=== PATIENT | female | born 1960 | race Caucasian/White ===

== ENCOUNTER → 2016-12-05 | Outpatient (CLI) | payer OTHER | LOC: COL.RAD 12-01 10:00 | DX: R19.4 Change in bowel habit (principal) ==

== ENCOUNTER 2020-07-25 23:19 | Inpatient (IN) | payer OTHER ==
[2020-07-26] VITALS (7 sets, daily range): BP systolic 80–102; BP diastolic 42–62; PULSE 58–70; TEMP 97.4–98.4
--- NOTE | 2020-07-26 00:50 | NUR ---
PATIENT WAS RECEIVED ON A CART BROUGHT IN BY EMS A TRANSFER FROM [facility],DENIES PAIN HAS IV ACCESS ON BOTH AC.ASSESSMENT DONE.ORIENTATION DONE.
[2020-07-26 02:08] LABS: HEMATOCRIT 49.3 % (37.0-47.0); MEAN CELL VOLUME 94 fl (80.0-100.0); MEAN CORPUSCULAR HEMOGLOBIN 32 pg (27.0-31.0); MEAN CORPUSCULAR HGB CONC 35 g/dl (33.0-37.0); MEAN PLATELET VOLUME 8.6 fl (7.4-10.4); PLATELET COUNT 382 K/mm3 (130-400); RED BLOOD COUNT 5.27 M/mm3 (4.10-5.30); REDCELL DISTRIBUTION WIDTH-CV 13.2 % (11.5-14.5)
[2020-07-26 02:17] LABS: ALANINE AMINOTRANSFERASE 24 U/L (4-34); ALBUMIN 4.1 gm/dL (3.5-5.0); ALKALINE PHOSPHATASE 101 U/L (50-136); ANION GAP 14 mmol/L (7-16); AST,SGOT 55 U/L (15-37); BILIRUBIN,TOTAL 0.6 mg/dL (0.0-1.0); BLOOD UREA NITROGEN 21 mg/dL (7-17); CALCIUM 9.2 mg/dL (8.4-10.2); CHLORIDE 100 mmol/L (98-107); CREATININE, serum 1.07 (0.52-1.25); GLUCOSE 138 mg/dL (74-106); POTASSIUM 3.9 mmol/L (3.4-5.0); SALICYLATE 16.1 mg/dL; SODIUM 124 mmol/L (137-145); TOTAL PROTEIN 6.9 gm/dL (6.4-8.2)
[2020-07-26 02:23] LABS: CARBON DIOXIDE 9 mmol/L (22-30)
[2020-07-26 02:36] LABS: BAND 7 % (0-10); EOSINOPHIL 8 % (0-4); LYMPHOCYTE 9 % (20.0-51.0); NEUTROPHILS 70 % (42.0-75.2); PLATELET ESTIMATE NORMAL (NORMAL)
[2020-07-26 02:43] LABS: TROPONIN-I < 0.012 ng/mL (0.000-0.035)
[2020-07-26 02:49] LABS: ARTERIAL BLD GAS O2 SATURATION 97.3 % (92-100); ARTERIAL BLD GAS TCO2 CT 8.8; ARTERIAL BLOOD GAS BASE EXCESS -16.9 (-2-2); ARTERIAL BLOOD GAS HCO3 8.1 meq/L (22-26); ARTERIAL BLOOD GAS PO2 92.8 mmHg (80-100); ARTERIAL BLOOD GAS pH 7.23 (7.35-7.45)
[2020-07-26 02:50] LABS: ARTERIAL BLOOD GAS PCO2 19.9 mmHg (35-45)
[2020-07-26 02:59] LABS: MAGNESIUM 1.6 mg/dL (1.6-2.3)
[2020-07-26] MEDS ORDERED: TIROSINT137 MC1 PO (03:34)
[2020-07-26] MEDS ORDERED: FERROUS SU300 MG/5 M PO (03:35)
[2020-07-26] MEDS ORDERED: ALDACTONE 25MG25 M1 PO (03:36)
[2020-07-26] MEDS ORDERED: NEURONTIN600 MG/TAB PO (03:37)
[2020-07-26] MEDS ORDERED: PRIL40 PO (03:38)
[2020-07-26] MEDS ORDERED: CRESTOR40 MG PO (03:38)
[2020-07-26] MEDS ORDERED: LINZESS290CAP PO (03:39)
[2020-07-26] MEDS ORDERED: CENA K20 MEQ/15 PO (03:40)
--- NOTE | 2020-07-26 05:18 | NUR ---
PATIENT ASLEEP,ON RA ON IV NS AT 25OML/HR.HAS DIMINISHED URINE OUTPUT.DENIES PAIN.NO NEEDS AT THID TIME.
[2020-07-26 06:31] LABS: HEMOGLOBIN 15.9 g/dl (12.5-16.0); MEAN CELL VOLUME 92 fl (80.0-100.0); MEAN CORPUSCULAR HEMOGLOBIN 32 pg (27.0-31.0); MEAN CORPUSCULAR HGB CONC 35 g/dl (33.0-37.0); MEAN PLATELET VOLUME 8.6 fl (7.4-10.4); PLATELET COUNT 396 K/mm3 (130-400); RED BLOOD COUNT 5.01 M/mm3 (4.10-5.30); REDCELL DISTRIBUTION WIDTH-CV 13.2 % (11.5-14.5)
[2020-07-26 06:47] LABS: ALBUMIN 3.6 gm/dL (3.5-5.0); BILIRUBIN,TOTAL 0.6 mg/dL (0.0-1.0); CALCIUM 8.2 mg/dL (8.4-10.2); CREATININE, serum 0.86 (0.52-1.25); POTASSIUM 3.5 mmol/L (3.4-5.0); TOTAL PROTEIN 6.2 gm/dL (6.4-8.2)
--- NOTE | 2020-07-26 07:00 | NUR ---
Report received from RADHA Sebastian. PT in bed resting, denies needs, will continue to monitor.
[2020-07-26 07:32] LABS: BAND 4 % (0-10); LYMPHOCYTE 8 % (20.0-51.0); NEUTROPHILS 81 % (42.0-75.2); PLATELET ESTIMATE NORMAL (NORMAL)
[2020-07-26 08:30] LABS: COLLECTION METHOD CLEAN CATCH
[2020-07-26 08:49] LABS: MUCOUS Present /lpf; PH 6 (5-8); SQUAMOUS EPITHELIAL 0-2 /hpf; URINE APPEARANCE Clear; URINE BACTERIA None Seen /hpf; URINE BILIRUBIN Negative (NEGATIVE); URINE BLOOD Negative (NEGATIVE); URINE COLOR Yellow; URINE GLUCOSE Negative (NEGATIVE); URINE KETONE Negative (NEGATIVE); URINE LEUKOCYTE ESTERASE Negative (NEGATIVE); URINE NITRATE Negative (NEGATIVE); URINE PROTEIN(semi-quant) Negative (NEGATIVE); URINE RBC 0-2 /hpf; URINE UROBILINOGEN Negative (NEGATIVE)
[2020-07-26 08:57] LABS: TRICYCLIC ANTIDEPRESS URINE NEGATIVE
--- NOTE | 2020-07-26 09:35 | NUR ---
Assessmetn charted. Pt sleeping but easy to arouse. Called Osmany in room, update provided and he will be here after lunch to see pt. PT has skin tear to R rivera, states she get skin tears easily. Skin is marr, has a bit of redness to the abd. IVF to RFA. Pt denies pain. oRiented but is a little lethargic. Eyes are evidence of Graves disease. Deneis needs, oriented. Will continue ot monitor..
--- NOTE | 2020-07-26 12:42 | NUR ---
Call received from Dr. Matt, reviewed labs and pt presentatin, he will stop by in the morning. Will continue ot monitor.
--- NOTE | 2020-07-26 12:47 | NUR ---
First visit from the poultry eviscerator. No needs right now.
--- NOTE | 2020-07-26 13:20 | NUR ---
Cabinet Installer met with patient to discuss discharge planning. Patient lives in [place] with her , Osmany (ph#[phone]) and sees Dr. Powers for primary care on [facility]. Patient obtains her medications from [facility] with no difficulties. Patient does not use any DME and is independent with ADLS. Patient thinks she may have completed DPOA-HC when she completed her Will with [facility] in [place]. Patient states this would designate her , Osmany. Patient plans to return home upon discharge. SW contacted patient's , Osmany who advised he has no questions or concerns at this time and will actually be here later this afternoon to visit. SW will continue to follow as needed.
[2020-07-26 16:23] LABS: CALCIUM 7.7 mg/dL (8.4-10.2); CREATININE, serum 0.86 (0.52-1.25); POTASSIUM 3.4 mmol/L (3.4-5.0)
--- NOTE | 2020-07-26 17:10 | NUR ---
Pt doing well, resting in bed, up twice for loose stool today, chronic issue for pt with IBS but prior to admit did not have BM for 3 days. Coffman draining clear yellow uirne in good amount to bag at side of bed. Levsin given for bladder spasms otherwise denies needs. Will give bedside shift report to nightshift nurse who will resume care.
--- NOTE | 2020-07-26 22:17 | NUR ---
PATIENT IS CALM IN BED.DUE MEDS GIVEN,ASSESSMENT DONE.HAS IVFS IN GOOD PROGRESS.PATIENT DENIES PAIN.NO NEEDS AT THIS TIME.
[2020-07-27] VITALS (7 sets, daily range): BP systolic 85–107; BP diastolic 40–59; PULSE 55–97; TEMP 97.3–98.3
--- NOTE | 2020-07-27 06:01 | NUR ---
PATIENT IS FAIR,DENIES PAIN AND NAUSEA.ON RA,IVFS ON GOOD PROGRESS.RANDOM UA FOR POTASSIUM AND SODIUM LEVEL COLLECTED,PENDING RESULTS.
[2020-07-27 07:35] LABS: POTASSIUM 2.8 mmol/L (3.4-5.0)
[2020-07-27 08:34] LABS: CALCIUM 7.4 mg/dL (8.4-10.2); CREATININE, serum 1.35 (0.52-1.25)
[2020-07-27] MEDS ORDERED: ZYRTEC 10MG10 MG PO (10:01)
[2020-07-27 10:07] LABS: BASO % 0.3 % (0.0-2.0); EOS % 0.2 % (0-4.0); GRAN % 63.4 % (42.2-75.2); HEMATOCRIT 37.7 % (37.0-47.0); LYMPH # 2.6 (1.2-3.4); LYMPH % 23.9 % (20.0-51.0); MEAN CELL VOLUME 92 fl (80.0-100.0); MEAN CORPUSCULAR HEMOGLOBIN 32 pg (27.0-31.0); MEAN CORPUSCULAR HGB CONC 35 g/dl (33.0-37.0); MEAN PLATELET VOLUME 9.2 fl (7.4-10.4); MONO # 1.3 (0.1-0.6); MONO % 11.5 % (1.7-9.3); PLATELET COUNT 339 K/mm3 (130-400); RED BLOOD COUNT 4.08 M/mm3 (4.10-5.30); REDCELL DISTRIBUTION WIDTH-CV 13.7 % (11.5-14.5)
[2020-07-27 10:10] LABS: HEMOGLOBIN 13.1 g/dl (12.5-16.0)
--- NOTE | 2020-07-27 10:54 | NUR ---
Pt assessment completed and charted, medications administered per mar. Pt A&O, laying in bed, on room air, breathing is even and unlabored, denies SOB, LS cta. HRRR. Pt has LAC IV w/ IVF @ 100ml/hr running w/o issue. Pt has blancas in place draining yellow cloudy urine. Neuro checks WNL. Critical potassium lab called to physician, on replacement protocol. Pulses strong bilaterally. pt c/o bladder spasms. Will discuss w/ physician. Pt denies dizziness, N/V/D, chest pain, abdominal pain. No further needs expressed at this time.
--- NOTE | 2020-07-27 14:59 | NUR ---
Speech/Language Therapist followed up with patient as PT has recommended outpatient PT upon discharge. Patient is agreeable and would like to be set up with [facility] the [facility]. SW will set up upon discharge. Patient also requested SW follow up with Dr. Powers's nurse outpatient case manager, Delmy about referral to Dr. Forde. ALICE contacted Delmy who confirmed referral was sent to Dr. Forde and he is the approved physician. ALICE will continue to follow.
--- NOTE | 2020-07-27 20:00 | NUR ---
PATIENT WAS RECEIVED FAIR IN BED.ON IVFS DRIPPING WELL.REPORTS BLADDER SPASMS PROVIDER AWARE.DUE MEDS GIVEN,ASSESSMENT DONE.NO OTHER NEEDS AT THIS TIME
--- NOTE | 2020-07-27 22:00 | NUR ---
URINE SAMPLE COLLECTED AND SENT TO LAB.
[2020-07-28 00:01] VITALS: BP 84/48; PULSE 67; TEMP 98.1
[2020-07-28 03:38] LABS: COLLECTION METHOD IN
[2020-07-28 03:48] LABS: PH 6 (5-8); SQUAMOUS EPITHELIAL None Seen /hpf; URINE APPEARANCE Cloudy; URINE BACTERIA None Seen /hpf; URINE BILIRUBIN Negative (NEGATIVE); URINE BLOOD 3+ (NEGATIVE); URINE COLOR Yellow; URINE GLUCOSE Negative (NEGATIVE); URINE KETONE Negative (NEGATIVE); URINE LEUKOCYTE ESTERASE 3+ (NEGATIVE); URINE NITRATE Negative (NEGATIVE); URINE PROTEIN(semi-quant) 2+ (NEGATIVE); URINE RBC 0-2 /hpf; URINE UROBILINOGEN Negative (NEGATIVE)
[2020-07-28 04:19] VITALS: BP 84/49; PULSE 56; TEMP 97.8
--- NOTE | 2020-07-28 06:27 | NUR ---
PATIENT HAD A CALM NIGHT.NIGHT HOSPITALIST ORDERED FOR REMOVAL AND INSERTION OF A BETANCUR.BETANCUR WAS REMOVED,ATTEMPTED INSERTING A NEW ONE,PATIENT REPORTED OF PAIN COULD NOT TOLERATE THE PROCEDURE PROVIDER WAS NOTIFIED.PLAN ALLOW PT TOO VOID.PATIENT HAS NOT PASSED URINE YET.
[2020-07-28 07:02] LABS: BASO % 0.2 % (0.0-2.0); EOS % 0.1 % (0-4.0); GRAN # 9.5 (1.4-6.5); GRAN % 78.7 % (42.2-75.2); HEMATOCRIT 38.3 % (37.0-47.0); HEMOGLOBIN 13.3 g/dl (12.5-16.0); LYMPH # 1.5 (1.2-3.4); LYMPH % 12.4 % (20.0-51.0); MEAN CELL VOLUME 93 fl (80.0-100.0); MEAN CORPUSCULAR HEMOGLOBIN 32 pg (27.0-31.0); MEAN CORPUSCULAR HGB CONC 35 g/dl (33.0-37.0); MEAN PLATELET VOLUME 9.1 fl (7.4-10.4); MONO % 8.1 % (1.7-9.3); PLATELET COUNT 346 K/mm3 (130-400); RED BLOOD COUNT 4.13 M/mm3 (4.10-5.30); REDCELL DISTRIBUTION WIDTH-CV 13.8 % (11.5-14.5)
[2020-07-28 07:17] LABS: CALCIUM 7.6 mg/dL (8.4-10.2); CREATININE, serum 0.67 (0.52-1.25); POTASSIUM 3.2 mmol/L (3.4-5.0)
[2020-07-28 07:22] VITALS: BP 100/65; PULSE 60; TEMP 98.2
--- NOTE | 2020-07-28 09:33 | NUR ---
Pt alert and reading to assessment as charted. IV infusing NS at 100 ml/hr. IV site in patient Left A.C space. Patient voices to acute concerns. Denies any pain at this time. PN student Ana Law
[2020-07-28] MEDS ORDERED: CENA K20 MEQ/15 PO (09:37)
[2020-07-28] MEDS ORDERED: COLACE 100100 MG/CAP PO (09:38)
[2020-07-28] MEDS ORDERED: OMNICEF 300MG300 MG PO (10:06)
[2020-07-28] MEDS ORDERED: PROTONIX 40MG T40 MG PO (10:09)
[2020-07-28 11:03] VITALS: BP 106/71; PULSE 70; TEMP 97.9
--- NOTE | 2020-07-28 11:35 | NUR ---
Pt assessment completed and charted, medications administered per aug. Pt A&O, independent in room, on room air, breathing is even and unlabored. LS cta, HRRR. Pt had student nurse and instructor from [facility] caring for pt this morning. Pt denies pain, dizziness, N/V/D, chest pain, abdominal pain. Coffman removed last night w/ nightshift. Pt voiding this morning. Pt states she has some loose stool but its a small amount. Pt denies blood in stool. Pt has LAC INT IV that flushes well. Edema to Lt hand, 1+ noted. Pt to monitor at home, f/u appt w/ PCP. No other edema, BS active X4. Pt ambulating halls w/ therapy no other needs. Pt to discharge this afternoon.
--- NOTE | 2020-07-28 13:00 | NUR ---
Pt discharge instructions discussed and reviewed w/ pt and who verbalized understanding, all questions answered. LAC INT IV dc'd w/ cath tip intact and no issues. Pt home meds sent home with patient. No further needs. pt escorted out via WC w/ driving home in private car.
--- NOTE | 2020-07-28 16:20 | NUR ---
Cleat Layer attended clinical rounds and patient to discharge home today with outpatient PT. SW contacted [facility] and faxed referral/orders. SW was advised that since patient has they would need to obtain authorization before scheduling an appointment. SW was advised they will call patient to schedule an appointment once auth is obtained. SW provided update to patient and patient's , Osmany. No additional needs at this time.
== END 2020-07-28 13:00 | disposition home or self-care (01) | DRG 392 ==
LOC: MEDICAL 23:19
PROVIDERS: Student in an Organized Health Care Education/Training Program; ADMIT Student in an Organized Health Care Education/Training Program
DX: K52.9 Noninfective gastroenteritis and colitis, unspecified (principal); E87.2 Acidosis; N17.9 Acute kidney failure, unspecified; E87.1 Hypo-osmolality and hyponatremia; N39.0 Urinary tract infection, site not specified; N18.9 Chronic kidney disease, unspecified; E87.6 Hypokalemia; E86.0 Dehydration; K58.1 Irritable bowel syndrome with constipation; Z66 Do not resuscitate; Z20.822 Contact with and (suspected) exposure to COVID-19; D75.1 Secondary polycythemia; I95.9 Hypotension, unspecified; E05.00 Thyrotoxicosis with diffuse goiter without thyrotoxic crisis or storm; G62.1 Alcoholic polyneuropathy; F32.9 Major depressive disorder, single episode, unspecified; Z87.891 Personal history of nicotine dependence; Z88.2 Allergy status to sulfonamides
CPT/HCPCS: 99223-AI; 99232-AI; 99239; A4314; J0696; J1644; J7030